=== PATIENT | female | born 1965 | race Caucasian/White ===

== ENCOUNTER 2017-10-10 11:36 | Inpatient (IN) | payer BC ==
[2017-10-10] MEDS ORDERED: NORMAL SALINE 1000 ML 1,000 ML IV ONE (12:13)
--- NOTE | 2017-10-10 12:15 | ER Document Report ---
ED Medical Screen (RME) - General Chief Complaint: Lower Abdominal Pain Stated Complaint: ABDOMINAL PAIN Time Seen by Provider: 10/10/17 12:12 Notes: pt sent from Dr. Montoya's office for llq pain. states there was tender mass there this am. Dr. Montoya worried about incarcerated hernia. no incarc hernia appreciated in [place]. TRAVEL OUTSIDE OF THE [place] IN LAST 30 DAYS: No - Related Data Allergies/Adverse Reactions: promethazine HCl [From Phenergan] Adverse Reaction (Verified 10/10/17 11:38) "climbing lopez" Past Medical History - Social History Chew tobacco use (# tins/day): No Frequency of alcohol use: None Drug Abuse: None - Past Medical History Cardiac Medical History: Reports: Hx Hypercholesterolemia, Hx Hypertension Renal/ Medical History: Denies: Hx Peritoneal Dialysis Past Surgical History: Reports: Hx Hysterectomy - Immunizations Hx Diphtheria, Pertussis, Tetanus Vaccination: No Physical Exam - Vital signs Vitals: Temp Pulse Resp BP Pulse Ox 99.3 F 91 15 145/87 H 95 10/10/17 11:41 10/10/17 11:41 10/10/17 11:41 10/10/17 11:41 10/10/17 11:41 Course - Vital Signs Vital signs: Temp Pulse Resp BP Pulse Ox 99.3 F 91 15 145/87 H 95 10/10/17 11:41 10/10/17 11:41 10/10/17 11:41 10/10/17 11:41 10/10/17 11:41
[2017-10-10 12:41] LABS: ABSOLUTE BASOPHILS # (AUTO) 0.1 10^3/uL (0.0-0.2); ABSOLUTE LYMPHOCYTES (AUTO) 1.6 10^3/uL (0.5-4.7); ABSOLUTE MONOCYTES (AUTO) 0.8 10^3/uL (0.1-1.4); ABSOLUTE NEUT (AUTO) 10.7 10^3/uL (1.7-8.2); BASOPHILS % (AUTO) 0.8 % (0-2); EOSINOPHILS % (AUTO) 0.3 % (0-6); HEMATOCRIT 46.6 % (36.0-47.0); HEMOGLOBIN 15.5 g/dL (12.0-15.5); LYMPHOCYTES % (AUTO) 12.1 % (13-45); MEAN CORPUSCULAR HGB CONC 33.2 g/dL (32.0-36.0); MEAN CORPUSCULAR VOLUME 93 fl (80-97); PLATELET COUNT 335 10^3/uL (150-450); SEGMENTED NEUTROPHILS % (AUTO) 80.8 % (42-78); TOTAL CELLS COUNTED % (AUTO) 100 %; WHITE BLOOD COUNT 13.2 10^3/uL (4.0-10.5)
[2017-10-10 12:46] LABS: APPEARANCE,URINE SLIGHTLY-CLOUDY; BILIRUBIN,URINE NEGATIVE (NEGATIVE); COLOR,URINE YELLOW; GLUCOSE, URINE NEGATIVE (NEGATIVE); KETONES,URINE NEGATIVE (NEGATIVE); LEUKOCYTE ESTERASE,URINE NEGATIVE (NEGATIVE); NITRITE,URINE NEGATIVE (NEGATIVE); PROTEIN,URINE NEGATIVE (NEGATIVE); URINE SPECIFIC GRAVITY 1.023; UROBILINOGEN,URINE NEGATIVE mg/dL (<2.0)
[2017-10-10] MEDS ORDERED: NEOSTIGMINE METHYLSULFATE 10 MG/10 ML VIAL ONE (12:47)
[2017-10-10] MEDS ORDERED: SUCCINYLCHOLINE CHLORIDE INJ 200 MG/10 ML VIAL ONE (12:47)
[2017-10-10] MEDS ORDERED: LIDOCAINE 2% INJ-PF (20 MG/ML) 2 ML AMPUL ONE (12:47)
[2017-10-10] MEDS ORDERED: ONDANSETRON HCL INJ/PF 4 MG/2 ML SDV ONE ×2 (12:47→20:19)
[2017-10-10] MEDS ORDERED: DEXAMETHASONE SOD PHOSPHATE INJ 4 MG/1 ML VIAL ONE (12:47)
[2017-10-10] MEDS ORDERED: ROCURONIUM BROMIDE INJ 50 MG/5 ML VIAL IV ONE (12:47)
[2017-10-10] MEDS ORDERED: GLYCOPYRROLATE INJ 0.4 MG/2 ML VIAL ONE (12:47)
[2017-10-10 12:56] LABS: ALANINE AMINOTRANSFERASE 42 U/L (9-52); ALKALINE PHOSPHATASE 101 U/L (38-126); ANION GAP 14 (5-19); ASPARTATE AMINO TRANSFERASE 26 U/L (14-36); BILIRUBIN,DIRECT 0.3 mg/dL (0.0-0.4); BILIRUBIN,TOTAL 1.1 mg/dL (0.2-1.3); BLOOD UREA NITROGEN 12 mg/dL (7-20); CALCIUM 10.8 mg/dL (8.4-10.2); CARBON DIOXIDE 26 mmol/L (22-30); CHLORIDE 100 mmol/L (98-107); GLUCOSE 116 mg/dL (75-110); POTASSIUM 4.3 mmol/L (3.6-5.0); SODIUM 140.1 mmol/L (137-145); TOTAL PROTEIN 7.8 g/dL (6.3-8.2)
--- NOTE | 2017-10-10 13:19 | ER Document Report ---
ED GI/ - General Chief Complaint: Lower Abdominal Pain Stated Complaint: ABDOMINAL PAIN Time Seen by Provider: 10/10/17 12:12 Notes: Patient having pain in the left lower quadrant of her abdomen out 24 hours ago. She was just doing some light physical activity when the pain began. It has gotten worse throughout the evening and night. Is been confined to the left lower quadrant. Patient says she feels like she can feel some swelling in that region. Went to her primary care physician's office this morning who said that she could feel a knot in the left lower quadrant and sent her here for further evaluation. Patient says she is nauseated but not vomiting. During the night, she had about 7 small loose stools, but no blood seen. She has never had any gastrointestinal disorder such as colitis, diverticulitis, etc. Patient has felt hot and cold, but has not noted a fever. Patient has had a hernia repair and a hysterectomy. TRAVEL OUTSIDE OF THE [place] IN LAST 30 DAYS: No - Related Data Allergies/Adverse Reactions: promethazine HCl [From Phenergan] Adverse Reaction (Verified 10/10/17 11:38) "climbing lopez" Past Medical History - Social History Smoking Status: Former Smoker Chew tobacco use (# tins/day): No Frequency of alcohol use: Occasional Drug Abuse: None Family History: Reviewed & Not Pertinent Patient has suicidal ideation: No Patient has homicidal ideation: No - Past Medical History Cardiac Medical History: Reports: Hx Hypercholesterolemia, Hx Hypertension Endocrine Medical History: Reports: Hx Diabetes Mellitus Type 2 - Total she does not have diabetes, but on metformin. Past Surgical History: Reports: Hx Hysterectomy - Immunizations Hx Diphtheria, Pertussis, Tetanus Vaccination: No Review of Systems - Review of Systems Notes: REVIEW OF SYSTEMS: CONSTITUTIONAL : Denies fever. EENT: Denies eye, ear, nose or mouth or throat pain or other symptoms. CARDIOVASCULAR: Denies chest pain. RESPIRATORY: Denies cough, chest congestion, or shortness of breath. GASTROINTESTINAL: See HPI. GENITOURINARY: Denies difficulty or painful urinating, urinary frequency, blood in urine. History of kidney stones, but this pain does not feel like a stone. MUSCULOSKELETAL: Denies back or neck pain. Denies joint pain or swelling. SKIN: Denies rash or skin lesions. NEUROLOGICAL: Denies LOC or altered mental status. Denies headache. Denies sensory loss or motor deficits. ALL OTHER SYSTEMS REVIEWED AND NEGATIVE. Physical Exam - Vital signs Vitals: Temp Pulse Resp BP Pulse Ox 99.3 F 91 15 145/87 H 95 10/10/17 11:41 10/10/17 11:41 10/10/17 11:41 10/10/17 11:41 10/10/17 11:41 Interpretation: Normal - Notes Notes: PHYSICAL EXAMINATION: GENERAL: Well-appearing, in no acute distress. HEAD: Atraumatic, normocephalic. EYES: Pupils equal round and reactive to light, extraocular movements intact. ENT: oropharynx clear without exudates. Moist mucous membranes. NECK: Normal range of motion, supple. LUNGS: Breath sounds clear and equal bilaterally. HEART: Regular rate and rhythm without murmurs. ABDOMEN: Tender in the left lower quadrant. I feel a slight protrusion about 3- 4 cm diameter in the left lower quadrant which is tender to touch. Remainder of the abdomen is completely normal to examine. BACK: No tenderness throughout entire back. EXTREMITIES: Normal range of motion without pain. NEUROLOGICAL: Normal speech, normal gait. Normal sensory, motor, and reflex exams. Awake, alert, and oriented x3. Cranial nerves normal. PSYCH: Normal mood, normal affect. SKIN: Warm, dry, no rashes. Course - Re-evaluation Re-evalutation: 10/10/17 14:54 Spoke with radiologist who says patient has an incarcerated sigmoid colon hernia. Spoke with the surgeon events solutions consultant, Dr. Hood, who will see the patient in the ED and plan for surgical intervention. - Vital Signs Vital signs: Temp Pulse Resp BP Pulse Ox 99.3 F 91 15 145/87 H 95 10/10/17 11:41 10/10/17 11:41 10/10/17 11:41 10/10/17 11:41 10/10/17 11:41 - Laboratory Result Diagrams: 10/10/17 12:28 10/10/17 12:28 Laboratory results interpreted by me: 10/10/17 10/10/17 12:28 12:28 WBC 13.2 H Seg Neutrophils % 80.8 H Lymphocytes % 12.1 L Absolute Neutrophils 10.7 H Glucose 116 H Calcium 10.8 H - Diagnostic Test Radiology reviewed: Image reviewed, Reports reviewed - CT of the abdomen and pelvis with IV contrast shows an incarcerated sigmoid colon hernia with some swelling and edematous changes. Discharge - Discharge Clinical Impression: Incarcerated hernia Condition: Stable Disposition: ADMITTED INPATIENT Admitting Provider: Surgicalist Unit Admitted: OR
--- NOTE | 2017-10-10 15:11 | RADIOLOGY REPORT (SQ) ---
EXAM DESCRIPTION: CT ABD/PELVIS WITH IV ONLY COMPLETED DATE/TIME: 10/10/2017 1:38 pm REASON FOR STUDY: llq pain COMPARISON: CT abdomen pelvis 05/18/2013 TECHNIQUE: CT scan of the abdomen and pelvis performed using helical scanning technique with dynamic intravenous contrast injection. No oral contrast. Images reviewed with lung, soft tissue, and bone windows. Reconstructed coronal and sagittal MPR imag es reviewed. Delayed images for evaluation of the urinary system also acquired. All images stored on PACS. All CT scanners at this facility use dose modulation, iterative reconstruction, and/or weight based d osing when appropriate to reduce radiation dose to as low as reasonably achievable (ALARA). [facility]: Dose Right [facility]: CareDose [facility]: Dose Right [facility]: Teradose 4D [facility]: [place] CONTRAST TYPE AND DOSE: contrast/concentration: Isovue 370.00 mg/ml; Total Contrast Delivered: 100.0 ml; Total Saline Delivered: 70.0 ml RENAL FUNCTION: Creatinine 0.58 RADIATION DOSE: CT Rad equipment meets quality standard of care and radiation dose reduction techniq ues were employed. CTDIvol: 20.5 - 21.0 mGy. DLP: 2354 mGy-cm.. LIMITATIONS: None. FINDINGS: Patient has a left lower quadrant hernia, along the lateral aspect of the left rectus musc le sheath. This hernia contains a thick walled loop of descending colon with stranding in the fat becerra rrounding the bowel loop within the hernia sac. This is worrisome for an incarcerated hernia, bowel wall ischemia in this loop is possible. These findings were discussed with Dr. Sy in the emerge ncy room, 1440 hours 10/10/2017. No proximal colon dilatation. No dilated small bowel loops worrisome for obstruction. No free intra peritoneal air or fluid. LOWER CHEST: No significant findings. No nodules or infiltrates. LIVER: Normal size. No masses. No dilated ducts. Diffuse fatty infiltration of the liver. SPLEEN: Normal size. No focal lesions. PANCREAS: No masses. No significant calcifications. No adjacent inflammation or peripancreatic fluid collections. Pancreatic duct not dilated. GALLBLADDER: No identified stones by CT criteria. No inflammatory changes to suggest cholecystitis. ADRENAL GLANDS: No significant masses or asymmetry. RIGHT KIDNEY AND URETER: No solid masses. No significant calcifications. No hydronephrosis or hyd roureter. LEFT KIDNEY AND URETER: No solid masses. No significant calcifications. No hydronephrosis or hydr oureter. AORTA AND VESSELS: No aneurysm. No dissection. Renal arteries, SMA, celiac without stenosis. RETROPERITONEUM: No retroperitoneal adenopathy, hemorrhage or masses. BOWEL AND PERITONEAL CAVITY: As above. APPENDIX: Normal. PELVIS: No mass. No free fluid. Normal bladder. Post hysterectomy ABDOMINAL WALL: No masses. No hernias. BONES: No significant or acute findings. OTHER: No other significant finding. IMPRESSION: Hernia left lower quadrant along the lateral edge of the rectus muscle sheath. This con tains a thick walled loop of descending colon, with surrounding inflammatory change worrisome for inc arcerated loop of bowel No proximal bowel obstruction is noted TECHNICAL DOCUMENTATION: JOB ID: [id number] Quality ID # [id number]: Final reports with documentation of one or more dose reduction techniques (e.g., Au tomated exposure control, adjustment of the mA and/or kV according to patient size, use of iterative reconstruction technique) 2010 [employer]- All Rights Reserved Reading location - IP/workstation name: [facility]
[2017-10-10] MEDS ORDERED: CEFOXITIN INJ 1 GM VIAL IV ONE (15:58)
--- NOTE | 2017-10-10 15:58 | PDOC H&P ---
History of Present Illness Admission Date/PCP: 10/10/17 15:03 History of Present Illness: LEISA JEAN is a 52 year old female with a 2 week hx of left sided abdominal pain, more intense today. She saw her PCP today and was sent to the ER. A CT scan A/P has been done demonstrating a left lower quadrant ventral hernia containing inflamed sigmoid. The patient reports flatus and diarrhea this AM, no bowel function since then. Past Medical History Cardiac Medical History: Reports: Hyperlipidema, Hypertension Endocrine Medical History: Reports: Diabetes Mellitus Type 2 - Total she does not have diabetes, but on metformin. Past Surgical History Past Surgical History: Reports: Hysterectomy Social History Smoking Status: Former Smoker Family History Family History: Reviewed & Not Pertinent Parental Family History Reviewed: No Children Family History Reviewed: No Sibling(s) Family History Reviewed.: No Medication/Allergy Home Medications: Amlodipine Besylate 10 mg PO DAILY 10/10/17 Atorvastatin Calcium 20 mg PO DAILY 10/10/17 Escitalopram Oxalate 10 mg PO DAILY 10/10/17 Lorazepam [Ativan 0.5 mg Tablet] 0.5 mg PO Q4 PRN 10/10/17 Losartan Potassium 100 mg PO DAILY 10/10/17 Metformin HCl 500 mg PO DAILY 10/10/17 Spironolactone 25 mg PO DAILY 10/10/17 Allergies/Adverse Reactions: promethazine HCl [From Phenergan] Adverse Reaction (Verified 10/10/17 11:38) "climbing lopez" Physical Exam Vital Signs: Temp Pulse Resp BP Pulse Ox 99.3 F 91 15 145/87 H 95 10/10/17 11:41 10/10/17 11:41 10/10/17 11:41 10/10/17 11:41 10/10/17 11:41 General appearance: PRESENT: mild distress Head exam: PRESENT: atraumatic Mouth exam: PRESENT: moist Neck exam: PRESENT: full ROM Respiratory exam: PRESENT: clear to auscultation maria elena Cardiovascular exam: PRESENT: RRR GI/Abdominal exam: PRESENT: soft, tenderness - LLQ with palpable tender subcutaneous mass, other - obese Extremities exam: PRESENT: full ROM Musculoskeletal exam: PRESENT: full ROM Neurological exam: PRESENT: alert, altered Psychiatric exam: PRESENT: anxious Results Impressions: Abdomen/Pelvis CT 10/10/17 12:13 IMPRESSION: Hernia left lower quadrant along the lateral edge of the rectus muscle sheath. This contains a thick walled loop of descending colon, with surrounding inflammatory change worrisome for incarcerated loop of bowel No proximal bowel obstruction is noted Assessment & Plan - Diagnosis (1) Spigelian hernia Is this a current diagnosis for this admission?: Yes - Plan Summary Plan Summary: A/ LLQ Abdominal pain CT scan significant for Spigelian hernia, LLQ, containing sigmoid colon Colon appears inflamed on CT scan HTN, Hypercholesterolemia, Type 2 diabetes Morbid obesisty Slight leukocytosis (13k) P/ NPO IV Hydration Consent for epxloratory laparotomy, repair ventral hernia with mesh, possible bowel resection, possible ostomy Procedure, risks, benefits discussed with the patient, her questions were answered and she decides to proceed
[2017-10-10] MEDS ORDERED: CEFOXITIN SODIUM 2 GM in DEXTROSE 5%-WATER 100 ML IV PRN (16:16)
[2017-10-10] MEDS ORDERED: BUPIVACAINE HCL 0.5%-EPI 1:200000 INJ/PF 30 ML VIAL ONE (16:22)
[2017-10-10] MEDS ORDERED: FENTANYL CITRATE INJ/PF 250 MCG/5 ML AMPULE ONE (16:27)
[2017-10-10] MEDS ORDERED: ACETAMINOPHEN 100 ML IV ONE (16:28)
[2017-10-10] MEDS ORDERED: PROPOFOL INJ 200 MG/20 ML VIAL IV ONE (16:28)
[2017-10-10] MEDS ORDERED: MIDAZOLAM 2 MG/2 ML INJ ONE (16:28)
[2017-10-10] MEDS ORDERED: FENTANYL CITRATE INJ/PF 100 MCG/2 ML AMPUL ONE (17:21)
[2017-10-10] MEDS ORDERED: DIPHENHYDRAMINE HCL 50 MG/ML VIAL IV PRN (18:42)
[2017-10-10] MEDS ORDERED: MEPERIDINE HCL/PF INJ 25 MG/1 ML DISP.SYRIN IV PRN (18:42)
[2017-10-10] MEDS ORDERED: FENTANYL CITRATE INJ/PF 100 MCG/2 ML AMPUL IV PRN ×3 (18:42)
[2017-10-10] MEDS ORDERED: ONDANSETRON HCL INJ/PF 4 MG/2 ML SDV IV PRN (18:42)
--- NOTE | 2017-10-10 20:17 | Operative Report ---
Nonrecallable Operative Report DATE OF SURGERY: 10/10/17 PREOPERATIVE DIAGNOSIS: incarcerated, strangulated Spigelian hernia, left lower quadrant POSTOPERATIVE DIAGNOSIS: Incarcerated left lower quadrant Spigelian hernia OPERATION: Diagnostic laparoscopic. Laparoscopic repair of Spigelian hernia with primary closure. Excision of exuberant fat from sigmoid colon mesentery SURGEON: RYNE KAY 1ST [employer]: SHANTE WATSON ANESTHESIA: GA - plus 11 mL 1% lido with epi TISSUE REMOVED OR ALTERED: none COMPLICATIONS: none ESTIMATED BLOOD LOSS: 50 mL INTRAOPERATIVE FINDINGS: 3 cm LLQ Spigelian hernia defect filled with loop of sigmoid and large amount of sigmoid mesenteric fat; hernia incarcerated type PROCEDURE: see dictation
[2017-10-10] MEDS: FENTANYL CITRATE INJ/PF 100 MCG/2 ML AMPUL ONE ×2 (20:23→20:40)
--- NOTE | 2017-10-10 22:24 | EKG REPORT ---
SEVERITY:- OTHERWISE NORMAL ECG - SINUS RHYTHM BORDERLINE LEFT AXIS DEVIATION : Confirmed by: Darrell Davidson 10-Oct-2017 22:24:14
[2017-10-10] MEDS: MORPHINE SULFATE 10 MG/ML INJ IV PRN (22:58)
[2017-10-11] MEDS: FAMOTIDINE INJ/PF 20 MG/2 ML SDV IV SCH ×3 (00:28→21:33)
[2017-10-11] MEDS: ONDANSETRON HCL INJ/PF 4 MG/2 ML SDV IV SCH ×4 (00:30→18:02)
[2017-10-11] MEDS: NORMAL SALINE 1000 ML 1,000 ML IV PRN (00:30)
[2017-10-11] MEDS: CEFOXITIN SODIUM 2 GM in DEXTROSE 5%-WATER 100 ML IV SCH ×3 (01:03→18:02)
[2017-10-11] MEDS: MORPHINE SULFATE 10 MG/ML INJ IV PRN ×4 (01:04→21:33)
[2017-10-11 06:03] LABS: HEMATOCRIT 38.4 % (36.0-47.0); MEAN CORPUSCULAR HEMOGLOBIN 32.2 pg (27.0-33.4); MEAN CORPUSCULAR HGB CONC 34.2 g/dL (32.0-36.0); MEAN CORPUSCULAR VOLUME 94 fl (80-97); PLATELET COUNT 252 10^3/uL (150-450); RED BLOOD COUNT 4.09 10^6/uL (3.72-5.28); RED CELL DISTRIBUTION WIDTH 12.8 % (11.5-14.0); WHITE BLOOD COUNT 10.7 10^3/uL (4.0-10.5)
[2017-10-11 06:06] LABS: HEMOGLOBIN 13.2 g/dL (12.0-15.5)
[2017-10-11 06:17] LABS: ANION GAP 10 (5-19); BLOOD UREA NITROGEN 7 mg/dL (7-20); CALCIUM 9.1 mg/dL (8.4-10.2); CARBON DIOXIDE 28 mmol/L (22-30); CHLORIDE 104 mmol/L (98-107); GLUCOSE 125 mg/dL (75-110); POTASSIUM 4.4 mmol/L (3.6-5.0); SODIUM 141.9 mmol/L (137-145)
[2017-10-11] MEDS: OXYCODONE-ACETAMINOPHEN 5-325 MG TABLET PO PRN ×2 (11:49→18:02)
--- NOTE | 2017-10-11 15:45 | OPERATIVE REPORT E ---
Operative Report NAME: LEISA JEAN : 1965 AGE: 52Y DATE OF SURGERY: 10/10/2017 ROOM: 401 PREOPERATIVE DIAGNOSIS: Incarcerated left Spigelian hernia containing sigmoid colon. POSTOPERATIVE DIAGNOSIS: Incarcerated left Spigelian hernia containing sigmoid colon. OPERATION: 1. Diagnostic laparoscopy. 2. Laparoscopic repair of Spigelian hernia with primary closure. 3. Excision of excess mesenteric sigmoid fat. SURGEON: Filomena CARRERA M.D. COMPLICATIONS: None. ANESTHESIA: General plus mL of 1% Lidocaine with epinephrine. FLUIDS: 1300 URINE OUTPUT: 250 ESTIMATED BLOOD LOSS: 50 mL DRAINS: One round 10 mm Chato-Medrano drain. INDICATIONS AND FINDINGS: This is a morbidly obese 52-year-old female with a history of abdominal pain for 2 weeks. The pain has become more intense this morning in the left lower quadrant. She was sent to her medical doctor who sent her to the Emergency Room and found to have a left lower quadrant Spigelian hernia containing sigmoid colon which appears to be incarcerated with a possible strangulation. A decision was made to take the patient to surgery to undergo a diagnostic laparoscopy and laparoscopic versus open repair of the mesh with possible bowel resection and ostomy. Procedure, risks, benefits, complications explained to the patient. She understood all the above and decided to proceed. DESCRIPTION OF PROCEDURE: The procedure was done in the operating room. The patient was laid in supine position. General anesthesia induced by endotracheal intubation. Buckley catheter was placed. The abdomen was prepped and draped in usual fashion. An incision was made in the left upper quadrant and a 5 mm port with scope was inserted through the abdominal wall and CO2 pneumoperitoneum was established. Under direct visualization, 2 mm port, two 5 mm ports were placed in the right lateral quadrant of the abdomen about 5 fingerbreadths lateral to the midline. The 2 ports were spaced about 15 cm. The patient was then placed in a Trendelenburg position with the right side elevated and the left lower quadrant was explored and a loop of sigmoid colon was found to be encapsulated inside the Spigelian hernia defect located in the left lower quadrant. With graspers and ligature, a painstaking reduction of the sigmoid colon as well as the hernia contents was done which took about 2 hours of the entire procedure. During this portion of the procedure, the sigmoid colon was initially reduced followed by the reduction of a large amount of sigmoid mesenteric fat which was contained inside the hernia defect. This dissection was very prolonged because of the caution utilized to avoid any injury to the colon. Once the contents were completely excised, the sigmoid colon was completely examined and found to be free from any injury and the posteromedial wall of the colon was then carefully examined. A large amount of exuberant fatty tissue which was contained inside the Spigelian hernia defect and was traumatized by the hernia reduction was amputated with Bovie. All these segments of fat tissue were then extracted from the peritoneal cavity using an Endobag and removed. The CO2 pneumoperitoneum again was established. The ports were reinserted. The sigmoid colon was again examined on anterior and posterior wall and no evidence of injury was identified as well as no evidence of spillage of bowel content. At this point, the peritoneal cavity was irrigated with normal saline until clear and a qhxgph-hr-cuztu 0 PDS suture was used to close the Spigelian defect. This was done by making a single stab wound of the skin in the middle of the Spigelian hernia defect. Using a fascia closure device, the 0 PDS suture was passed in a bcsvhc-ch-muhbm fashion and repaired through the same opening so to place a bsyvjo-jh-kixwu suture to close the fascia defect. After this was done, the suture released and the defect was then closed with the suture without any difficulty and without too much tension. The area was then examined with a laparoscope and found to be appropriately repaired. Under direct visualization, the 10 mm flat Chato-Medrano drain was inserted through the left upper quadrant port site and directed toward the left lower quadrant where the hernia repair was made and where the mesentery of the sigmoid colon was divided. The position of the drain was considered to be optimal. At this point, the CO2 then was released. The instruments were removed. The ports were removed as well. The drain was then secured to the skin with a 3-0 nylon suture and connected to bulb suction. A 5 mm port was replaced with a 20 mm port during the procedure as a laparoscopic Endo ARMEN stapler was used to trim some of the exuberant fatty tissue off the sigmoid colon. The 12 port site was closed with a simple 0 PDS suture placed with a fascia closure device. All skin incisions were then closed with subcuticular 4-0 Monocryl running suture. Dermabond was applied to all the wounds. The patient tolerated the procedure well, extubated, transferred to the recovery room in satisfactory condition. DICTATING PHYSICIAN: RYNE KAY M.D. [id number] PHY#: [id number] ID: [id number] JOB#: [id number] ACCT: [id number] cc:RYNE KAY M.D. >
--- NOTE | 2017-10-11 16:15 | PDOC PROGRESS REPORT ---
Subjective Progress Note for:: 10/11/17 Subjective:: less abd pains Reason For Visit: INCARCERATED HERNIA Physical Exam Vital Signs: Temp Pulse Resp BP Pulse Ox 98.5 F 75 16 145/93 H 93 10/11/17 11:32 10/11/17 11:32 10/11/17 11:32 10/11/17 11:32 10/11/17 11:32 Intake & Output 10/10/17 10/11/17 10/12/17 06:59 06:59 06:59 Intake Total 2200 446 Output Total 1525 300 Balance 675 146 Weight 118.3 kg Exam: ROGER drain removed. Start clears OOB Results Laboratory Results: 10/11/17 04:54 10/11/17 04:54 10/11/17 10/11/17 04:54 04:54 WBC 10.7 H RBC 4.09 Hgb 13.2 D Hct 38.4 MCV 94 MCH 32.2 MCHC 34.2 RDW 12.8 Plt Count 252 Sodium 141.9 Potassium 4.4 Chloride 104 Carbon Dioxide 28 Anion Gap 10 BUN 7 Creatinine 0.54 Est GFR ( Amer) > 60 Est GFR (Non-Af Amer) > 60 Glucose 125 H Calcium 9.1 Impressions: Abdomen/Pelvis CT 10/10/17 12:13 IMPRESSION: Hernia left lower quadrant along the lateral edge of the rectus muscle sheath. This contains a thick walled loop of descending colon, with surrounding inflammatory change worrisome for incarcerated loop of bowel No proximal bowel obstruction is noted Assessment & Plan - Diagnosis (2) Spigelian hernia Is this a current diagnosis for this admission?: Yes - Time Time Spent with patient: 15-24 minutes - Inpatient Certification Medical Necessity: Need For IV Fluids, Need for Pain Control - Plan Summary Plan Summary: Start clears OOB D/C drain
[2017-10-12] MEDS: ONDANSETRON HCL INJ/PF 4 MG/2 ML SDV IV SCH ×4 (00:22→17:14)
[2017-10-12] MEDS: OXYCODONE-ACETAMINOPHEN 5-325 MG TABLET PO PRN (00:23)
[2017-10-12] MEDS: CEFOXITIN SODIUM 2 GM in DEXTROSE 5%-WATER 100 ML IV SCH ×3 (01:37→17:15)
[2017-10-12] MEDS: FAMOTIDINE INJ/PF 20 MG/2 ML SDV IV SCH (09:25)
[2017-10-12] MEDS ORDERED: DOCUSATE SODIUM 100 MG CAPSULE PO SCH (10:00)
[2017-10-12] MEDS: NORMAL SALINE 1000 ML 1,000 ML IV PRN (10:29)
[2017-10-12] MEDS ORDERED: GLYCERIN (ADULT) SUPP.RECT PR ONE (13:30)
[2017-10-12 15:57] VITALS: BP 151/89
--- NOTE | 2017-10-12 16:26 | PDOC PROGRESS REPORT ---
Subjective Progress Note for:: 10/12/17 Subjective:: Passed a lot of flatus Reason For Visit: INCARCERATED HERNIA Physical Exam Vital Signs: Temp Pulse Resp BP Pulse Ox 98.3 F 73 16 151/89 H 94 10/12/17 15:22 10/12/17 15:22 10/12/17 15:22 10/12/17 15:22 10/12/17 15:22 Intake & Output 10/11/17 10/12/17 10/13/17 06:59 06:59 06:59 Intake Total 2200 2958 Output Total 1525 300 Balance 675 2658 Weight 118.3 kg 120.9 kg Exam: abd soft and minimal tenderness RLQ area where she has 2 ports placed. Results Laboratory Results: 10/11/17 04:54 10/11/17 04:54 Impressions: Abdomen/Pelvis CT 10/10/17 12:13 IMPRESSION: Hernia left lower quadrant along the lateral edge of the rectus muscle sheath. This contains a thick walled loop of descending colon, with surrounding inflammatory change worrisome for incarcerated loop of bowel No proximal bowel obstruction is noted Assessment & Plan - Diagnosis (2) Spigelian hernia Is this a current diagnosis for this admission?: Yes - Time Time Spent with patient: 15-24 minutes - Plan Summary Plan Summary: Will increase diet to soft and if tolerates, discharge.
--- NOTE | 2017-10-13 05:45 | DISCHARGE SUMMARY E ---
Discharge Summary NAME: LEISA JEAN : 1965 AGE: 52Y ADMITTED: 10/10/2017 DISCHARGED: 10/12/2017 FINAL DIAGNOSIS: Incarcerated spigelian hernia. PROCEDURE: On 10/10/2017, laparoscopic reduction of incarcerated spigelian hernia/colon. Primary repair of the hernia. HOSPITAL COURSE: Patient admitted on 10/10/[address] scan of the abdomen which showed incarcerated descending colon along the left lateral rectus sheath, indicating incarcerated spigelian hernia. Patient taken to the OR on the same day for laparoscopic reduction of the hernia and primary repair of the hernia and primary repair of the hernia defect. Postoperatively, the patient did very well. The NG tube was removed on 10/11/2017 and started on clear liquids. On the day of discharge, patient able to tolerate soft diet and had good passage of flatus with abdomen remaining much less distended with minimal tenderness in the right lower abdomen trocar sites. The patient started on IV antibiotics with the white count elevated. She was discharged on oral Keflex 500 mg p.o. t.i.d. for 5 days as well as Percocet and Zofran. Patient advised not to do any lifting more than 10 to 15 pounds for the next 2 weeks. The patient is to be followed up in the surgical clinic in 2 weeks. DICTATING PHYSICIAN: ZEINA BAUTISTA M.D. [id number] PHY#: [id number] ID: [id number] JOB#: [id number] ACCT: [id number] cc:Filomena CARRERA M.D. >
== END 2017-10-12 19:11 | disposition home or self-care (01) | DRG 354 ==
LOC: ER 11:36 → EH 15:03 → 4N 21:43
PROVIDERS: ADMIT Surgery; ATTEND Surgery
PROC: 0DBV4ZZ Excision of Mesentery, Percutaneous Endoscopic Approach (ICD-10-PCS; 2017-10-10)
PROC: 0WQF4ZZ Repair Abdominal Wall, Percutaneous Endoscopic Approach (ICD-10-PCS; principal; 2017-10-10 16:45)
DX: K43.9 Ventral hernia without obstruction or gangrene (principal); Z68.43 Body mass index [BMI] 50.0-59.9, adult; E78.5 Hyperlipidemia, unspecified; E78.00 Pure hypercholesterolemia, unspecified; I10 Essential (primary) hypertension; E11.9 Type 2 diabetes mellitus without complications; E66.01 Morbid (severe) obesity due to excess calories; Z87.891 Personal history of nicotine dependence; Z79.84 Long term (current) use of oral hypoglycemic drugs; Z79.899 Other long term (current) drug therapy
CPT/HCPCS: 36415; 74177; 750; 80048; 80053; 81001; 85025; 85027; 93005; 93010; 96360; 99285; J0131; J0330; J0694; J1100; J2250; J2270; J2405; J2704; J3010; J3490; J7030; S0028

== ENCOUNTER → 2018-09-12 | Outpatient (CLI) | payer BC ==
[2018-09-12 11:42] LABS: ABSOLUTE BASOPHILS # (AUTO) 0.1 10^3/uL (0.0-0.2); ABSOLUTE EOSINOPHILS # (AUTO) 0.1 10^3/uL (0.0-0.6); ABSOLUTE LYMPHOCYTES (AUTO) 0.9 10^3/uL (0.5-4.7); ABSOLUTE MONOCYTES (AUTO) 0.8 10^3/uL (0.1-1.4); ABSOLUTE NEUT (AUTO) 4.6 10^3/uL (1.7-8.2); EOSINOPHILS % (AUTO) 1.1 % (0-6); HEMATOCRIT 42.9 % (36.0-47.0); HEMOGLOBIN 15.1 g/dL (12.0-15.5); LYMPHOCYTES % (AUTO) 14.5 % (13-45); MEAN CORPUSCULAR HEMOGLOBIN 32.4 pg (27.0-33.4); MEAN CORPUSCULAR HGB CONC 35.1 g/dL (32.0-36.0); MEAN CORPUSCULAR VOLUME 92 fl (80-97); MONOCYTES % (AUTO) 12.7 % (3-13); PLATELET COUNT 256 10^3/uL (150-450); RED BLOOD COUNT 4.65 10^6/uL (3.72-5.28); SEGMENTED NEUTROPHILS % (AUTO) 70.7 % (42-78); TOTAL CELLS COUNTED % (AUTO) 100 %; WHITE BLOOD COUNT 6.6 10^3/uL (4.0-10.5)
--- NOTE | 2018-09-12 12:00 | RADIOLOGY REPORT (SQ) ---
EXAM DESCRIPTION: CHEST PA/LATERAL COMPLETED DATE/TIME: 09/12/2018 11:45 am REASON FOR STUDY: UNSPECIFIED BACTERIAL PNEUMONIA COMPARISON: None. EXAM PARAMETERS: NUMBER OF VIEWS: two views TECHNIQUE: Digital Frontal and Lateral radiographic views of the chest acquired. RADIATION DOSE: NA LIMITATIONS: none FINDINGS: LUNGS AND PLEURA: No opacities, masses or pneumothorax. No pleural effusion. MEDIASTINUM AND HILAR STRUCTURES: No masses or contour abnormalities. HEART AND VASCULAR STRUCTURES: Heart normal size. No evidence for failure. BONES: No acute findings. HARDWARE: None in the chest. OTHER: No other significant finding. IMPRESSION: NO SIGNIFICANT RADIOGRAPHIC FINDING IN THE CHEST. TECHNICAL DOCUMENTATION: JOB ID: [id number] [employer]- All Rights Reserved Reading location - IP/workstation name: [email or web address]
[2018-09-12 12:06] LABS: ALANINE AMINOTRANSFERASE 42 U/L (9-52); ALBUMIN 4.6 g/dL (3.5-5.0); ALKALINE PHOSPHATASE 109 U/L (38-126); ANION GAP 16 (5-19); CALCIUM 10.6 mg/dL (8.4-10.2); CARBON DIOXIDE 25 mmol/L (22-30); CHLORIDE 96 mmol/L (98-107); CHOLESTEROL 176.36 mg/dL (0-200); POTASSIUM 3.6 mmol/L (3.6-5.0); SODIUM 136.5 mmol/L (137-145); TRIGLYCERIDES 205 mg/dL (<150)
[2018-09-12 12:12] LABS: ASPARTATE AMINO TRANSFERASE 38 U/L (14-36); BILIRUBIN,DIRECT 0.4 mg/dL (0.0-0.4); BILIRUBIN,TOTAL 0.9 mg/dL (0.2-1.3); BLOOD UREA NITROGEN 6 mg/dL (7-20); GLUCOSE 130 mg/dL (75-110); TOTAL PROTEIN 7.9 g/dL (6.3-8.2)
[2018-09-12 12:16] LABS: DIRECT LDL 102 mg/dL (<100)
== END ==
LOC: OD 11:13
PROVIDERS: ATTEND Family Medicine
DX: E83.52 Hypercalcemia (principal); J15.9 Unspecified bacterial pneumonia; R73.9 Hyperglycemia, unspecified; E78.5 Hyperlipidemia, unspecified
CPT/HCPCS: 36415; 71046; 80053; 80061; 82306; 83036; 84443; 85025

== ENCOUNTER 2018-09-22 08:32 | Emergency (ER) | payer BC ==
--- NOTE | 2018-09-22 09:37 | RADIOLOGY REPORT (SQ) ---
EXAM DESCRIPTION: CHEST 2 VIEWS COMPLETED DATE/TIME: 09/22/2018 9:28 am REASON FOR STUDY: right rib pain COMPARISON: Two-view chest 09/12/2018 EXAM PARAMETERS: NUMBER OF VIEWS: two views TECHNIQUE: Digital Frontal and Lateral radiographic views of the chest acquired. RADIATION DOSE: NA LIMITATIONS: none FINDINGS: LUNGS AND PLEURA: No opacities, masses or pneumothorax. No pleural effusion. MEDIASTINUM AND HILAR STRUCTURES: No masses or contour abnormalities. HEART AND VASCULAR STRUCTURES: Heart normal size. No evidence for failure. BONES: No acute findings. HARDWARE: None in the chest. OTHER: No other significant finding. IMPRESSION: NO ACUTE RADIOGRAPHIC FINDING IN THE CHEST. TECHNICAL DOCUMENTATION: JOB ID: [id number] [email or web address]- All Rights Reserved Reading location - IP/workstation name: [email or web address]
[2018-09-22 10:33] VITALS: BP 130/84
--- NOTE | 2018-09-22 10:33 | ER Document Report ---
ED Respiratory Problem - General Chief Complaint: Rib Pain Stated Complaint: RIB PAIN Time Seen by Provider: 09/22/18 09:01 Primary Care Provider: NANCI MARTINEZ MD [Primary Care Provider] - Follow up as needed Mode of Arrival: Ambulatory Information source: Patient Notes: 53-year-old female presents to ED for complaint of rib pain. She states she was being treated by PCP for bronchitis a week and a half with Levaquin and steroids. She states she still having a cough and felt like a snap in her ribs last night. She states she was coughing a lot and the rib pain continues. She denies taking any other medications for the pain. Patient is alert oriented respirations regular and unlabored speaking in full sentences walks with a even steady gait. TRAVEL OUTSIDE OF THE [place] IN LAST 30 DAYS: No - HPI Patient complains to provider of: Cough Onset: Other - 2 weeks Duration: Continuous, Intermittent episodes Initiating Event: URI Quality of pain: Sharp Severity: Moderate Pain Level: 4 Cough: Nonproductive Sputum amount: None Associated symptoms: Chest pain/discomfort - Right rib pain, Congestion, Cough, PND, Runny nose, Sinus pain/pressure Similar symptoms previously: Yes Recently seen / treated by doctor: Yes - Related Data Allergies/Adverse Reactions: promethazine HCl [From Phenergan] Adverse Reaction (Verified 10/10/17 11:38) "climbing lopez" Past Medical History - General Information source: Patient - Social History Smoking Status: Former Smoker Frequency of alcohol use: Occasional Drug Abuse: None Lives with: Family Family History: Reviewed & Not Pertinent Patient has suicidal ideation: No Patient has homicidal ideation: No - Past Medical History Cardiac Medical History: Reports: Hx Hypercholesterolemia, Hx Hypertension Pulmonary Medical History: Reports: Hx Bronchitis EENT Medical History: Reports: None Neurological Medical History: Reports: None Endocrine Medical History: Reports: Hx Diabetes Mellitus Type 2 - Total she does not have diabetes, but on metformin. Renal/ Medical History: Reports: None Malignancy Medical History: Reports: None GI Medical History: Reports: None Musculoskeletal Medical History: Reports None Skin Medical History: Reports None Psychiatric Medical History: Reports: None Traumatic Medical History: Reports: None Infectious Medical History: Reports: None Past Surgical History: Reports: Hx Hysterectomy - Immunizations Hx Diphtheria, Pertussis, Tetanus Vaccination: No Review of Systems - Review of Systems Constitutional: No symptoms reported EENT: Nose congestion, Nose discharge, Sinus pressure, Sinus discharge Cardiovascular: No symptoms reported Respiratory: Cough, Other Gastrointestinal: No symptoms reported Genitourinary: No symptoms reported Female Genitourinary: No symptoms reported Musculoskeletal: No symptoms reported Skin: No symptoms reported Hematologic/Lymphatic: No symptoms reported Neurological/Psychological: No symptoms reported Physical Exam - Vital signs Vitals: Temp Pulse Resp BP Pulse Ox 98.2 F 92 16 156/104 H 93 09/22/18 08:38 09/22/18 08:38 09/22/18 08:38 09/22/18 08:38 09/22/18 08:38 Interpretation: Normal - General General appearance: Appears well, Alert - HEENT Head: Normocephalic, Atraumatic Eyes: Normal Pupils: PERRL Ears: Normal External canal: Normal Tympanic membrane: Normal Sinus: Normal Nasal: Purulent discharge, Swelling Mouth/Lips: Normal Mucous membranes: Normal Pharynx: Post nasal drainage Neck: Normal - Respiratory Respiratory status: No respiratory distress. No: Respiratory distress, Depressed respirations, Retractions, Tachypnea Chest status: Tender, Pain on movement, Pain with cough, Pain with deep breathing Breath sounds: Normal Chest palpation: Normal - Cardiovascular Rhythm: Regular Heart sounds: Normal auscultation Murmur: No - Abdominal Inspection: Normal Distension: No distension Bowel sounds: Normal Tenderness: Nontender Organomegaly: No organomegaly - Back Back: Normal, Nontender - Extremities General upper extremity: Normal inspection, Nontender, Normal color, Normal ROM, Normal temperature General lower extremity: Normal inspection, Nontender, Normal color, Normal ROM, Normal temperature, Normal weight bearing. No: Nahun's sign - Neurological Neuro grossly intact: Yes Cognition: Normal Orientation: AAOx4 [place] Coma Scale Eye Opening: Spontaneous [place] Coma Scale Verbal: Oriented [place] Coma Scale Motor: Obeys Commands [place] Coma Scale Total: 15 Speech: Normal Motor strength normal: LUE, RUE, LLE, RLE Sensory: Normal - Psychological Associated symptoms: Normal affect, Normal mood - Skin Skin Temperature: Warm Skin Moisture: Dry Skin Color: Normal Course - Vital Signs Vital signs: Temp Pulse Resp BP Pulse Ox 98.3 F 79 18 130/84 H 93 09/22/18 10:22 09/22/18 10:22 09/22/18 10:22 09/22/18 10:22 09/22/18 10:22 - Diagnostic Test Radiology reviewed: Image reviewed, Reports reviewed Discharge - Discharge Clinical Impression: URI (upper respiratory infection) Qualifiers: URI type: unspecified viral URI Qualified Code(s): J06.9 - Acute upper respiratory infection, unspecified Contusion of rib on right side Qualifiers: Encounter type: initial encounter Qualified Code(s): S20.211A - Contusion of right front wall of thorax, initial encounter Condition: Stable Disposition: HOME, SELF-CARE Additional Instructions: Rib Contusion You have been diagnosed as having bruised ribs. It will usually take a few weeks for these injured ribs to heal. You should cough or take a deep breath at least every hour or two to prevent lung complications. You should not engage in any strenuous physical activity until released by your physician. The usual rule is "if it hurts, don't do it." Return if you develop any of the following: (1) Fever or chills. (2) Persistent cough, coughing up blood, or shortness of breath. (3) Increasing pain. (4) Weakness, lightheadedness, or fainting. UPPER RESPIRATORY ILLNESS: You have a viral infection of the respiratory passages -- a "cold." This common infection causes nasal congestion, drainage, and often sore throat and cough. It is highly contagious. The disease usually lasts about 10 to 14 days. There is no "cure" for the viral infection -- it must run its course. If there is a complication, such as bacterial infection in the nose, sinuses, middle ear, or bronchial tubes, antibiotics may be required. The antibiotics won't affect the virus. Drink plenty of fluids. A humidifier may help. An expectorant medication or decongestant may make you more comfortable. Use acetaminophen or ibuprofen for fever or aches. See the doctor if fever persists over two days, if there is any significant worsening of your symptoms, or if you simply fail to improve as expected. USE OF ACETAMINOPHEN (Tylenol): Acetaminophen may be taken for pain relief or fever control. It's much safer than aspirin, offering a wider range of "safe" dosages. It is safe during . Some brand names are Tylenol, Panadol, Datril, Anacin 3, Tempra, and Liquiprin. Acetaminophen can be repeated every four hours. The following are maximum recommended dosages: >89 pounds or adults 650 mg to 900 mg Acetaminophen can be repeated every four hours. Maximum dose not to exceed 4000 mg a day. Continue with your antibiotics and steroids as prescribed. Your lungs are clear your chest x-ray is clear there is no pneumonia there is no fractured ribs and there is no pneumothorax. Warm packs cold packs to the area whichever is more comfortable for you and follow-up with your primary care doctor. You may benefit from going to the gym and having a gym ortho assistant teach you some exercises to help strengthen that area to reduce injuries in the future. FOLLOW-UP CARE: If you have been referred to a physician for follow-up care, call the physicians office for an appointment as you were instructed or within the next two days. If you experience worsening or a significant change in your symptoms, notify the physician immediately or return to the Emergency Department at any time for re-evaluation. Forms: Elevated Blood Pressure, Return to Work Referrals: NANCI MARTINEZ MD [Primary Care Provider] - Follow up as needed
[2018-09-22] MEDS ORDERED: HYDROCODONE/ACETAMINOPHEN 5-325 MG TABLET PO ONE (10:37)
== END 2018-09-22 10:43 | disposition home or self-care (01) ==
LOC: ER 08:32
DX: S20.211A Contusion of right front wall of thorax, initial encounter (principal); R07.81 Pleurodynia; X58.XXXA Exposure to other specified factors, initial encounter; J06.9 Acute upper respiratory infection, unspecified; B97.89 Other viral agents as the cause of diseases classified elsewhere; R05 Cough; R09.82 Postnasal drip; I10 Essential (primary) hypertension; R09.81 Nasal congestion; J34.89 Other specified disorders of nose and nasal sinuses; Z87.891 Personal history of nicotine dependence
CPT/HCPCS: 71046; 99283

== ENCOUNTER 2019-03-14 10:01 | Emergency (ER) | payer BC ==
[2019-03-14] MEDS ORDERED: ONDANSETRON HCL INJ/PF 4 MG/2 ML SDV IV ONE (10:47)
--- NOTE | 2019-03-14 11:02 | ER Document Report ---
ED General - General Chief Complaint: Abdominal Pain Stated Complaint: LOWER ABDOMINAL PAIN Time Seen by Provider: 03/14/19 10:46 Primary Care Provider: MARCO A LUTZ MD [ACTIVE STAFF] - Follow up as needed NANCI MARTINEZ MD [Primary Care Provider] - 03/17/19 TRAVEL OUTSIDE OF THE [place] IN LAST 30 DAYS: No - HPI Notes: Patient is a 53-year-old female with a history of hypertension, left lower hernia repair 1.5years ago, total hyerstectomy, bilateral ovariectomy, IBS who presents complaining of left lower quadrant abdominal pain x4-6 days. The pain does not radiate. Patient states that the pain will be intermittent on occasion. She has had diarrhea for the last week and a half there is been watery without melena or hematochezia. She is urinating normally. No vaginal discharge, odor, bleeding. She has not noticed any bulging to her abdomen. She has had nausea without vomiting. Denies any headache, fever, neck pain, URI, sore throat, chest pain, palpitations, syncope, cough, shortness of breath, wheeze, dyspnea, vomiting/urinary retention, dysuria, hematuria, back pain, loss of control of bowel or bladder, numbness/tingling, saddle anesthesia, muscle paralysis/weakness, or rash. - Related Data Allergies/Adverse Reactions: promethazine HCl [From Phenergan] Adverse Reaction (Verified 03/14/19 10:04) "climbing lopez" Past Medical History - Social History Smoking Status: Never Smoker Family History: Reviewed & Not Pertinent - Past Medical History Cardiac Medical History: Reports: Hx Hypercholesterolemia, Hx Hypertension Pulmonary Medical History: Reports: Hx Bronchitis Endocrine Medical History: Reports: Hx Diabetes Mellitus Type 2 - Total she does not have diabetes, but on metformin. Renal/ Medical History: Denies: Hx Peritoneal Dialysis Past Surgical History: Reports: Hx Hysterectomy - Immunizations Hx Diphtheria, Pertussis, Tetanus Vaccination: No Review of Systems - Review of Systems -: Yes All other systems reviewed and negative Physical Exam - Vital signs Vitals: Temp Pulse Resp BP Pulse Ox 98.3 F 88 20 152/98 H 93 03/14/19 10:04 03/14/19 10:04 03/14/19 10:04 03/14/19 10:04 03/14/19 10:04 - Notes Notes: PHYSICAL EXAMINATION: GENERAL: Well-appearing, well-nourished and in no acute distress. HEAD: Atraumatic, normocephalic. EYES: Pupils equal round and reactive to light, extraocular movements intact, sclera anicteric, conjunctiva are normal. ENT: Nares patent and without discharge. oropharynx clear without exudates. No tonsilar hypertrophy or erythema. Moist mucous membranes. NECK: Normal range of motion, supple without lymphadenopathy LUNGS: Breath sounds clear to auscultation bilaterally and equal. No wheezes rales or rhonchi. HEART: Regular rate and rhythm without murmurs, rubs, gallops. ABDOMEN: Soft, nondistended abdomen. No guarding, no rebound. Normal bowel sounds present. No CVA tenderness bilaterally. No obvious hernia. + mild tenderness LLQ. Musculoskeletal: FROM to passive/active. Strength 5+/5. Extremities: No cyanosis, clubbing, or edema b/l. Peripheral pulses 2+. Capil corey refill less than 3 seconds. NEUROLOGICAL: Normal speech, normal gait. PSYCH: Normal mood, normal affect. SKIN: Warm, Dry, normal turgor, no rashes or lesions noted. Course - Re-evaluation Re-evalutation: 03/14/19 14:18 Patient is an afebrile, well-hydrated, 53-year-old female who presents with left lower abdominal pain, unspecified. Vitals are acceptable without significant tachycardia, tachypnea, or hypoxia. PE is otherwise unremarkable. Patient is nontoxic-appearing and is tolerating p.o. without difficulty. Patient states that she is feeling much better and currently does not have any discomfort. Patient did receive fluids and Zofran. Labs and imaging unremarkable. No further work-up warranted. Low suspicion/risk for acute appendicitis, bowel obstruction, acute cholecystitis, acute cholangitis, perforated diverticulitis, incarcerated hernia, pancreatitis, perforated ulcer, peritonitis, sepsis, pelvic inflammatory disease, ectopic , tubo-ovarian abscess, ovarian torsion, or other systemic emergent condition at this time. Patient is aware that her condition can change from initial presentation and she needs to monitor symptoms closely and seek medical attention if any acute changes. Conservative measures otherwise for symptoms. Recheck with your PCM in 2-3 days. Consider consult with a etl tester. Return to the ED with any worsening/concerning symptoms otherwise as reviewed in discharge. Patient is in agreement. - Vital Signs Vital signs: Temp Pulse Resp BP Pulse Ox 98.3 F 88 20 152/98 H 93 03/14/19 10:04 03/14/19 10:04 03/14/19 10:04 03/14/19 10:04 03/14/19 10:04 - Laboratory Result Diagrams: 03/14/19 11:20 03/14/19 11:20 Laboratory results interpreted by me: 03/14/19 11:20 Sodium 136.0 L Glucose 131 H Calcium 10.3 H AST 41 H Discharge - Discharge Clinical Impression: Left lower quadrant abdominal pain Condition: Stable Disposition: HOME, SELF-CARE Instructions: Abdominal Pain ([facility]), Antinausea Medication ([facility]) Additional Instructions: Maintain adequate fluid and food intake [place] diet ([employer] Bananas, rice, apples, toast, etc Zofran as needed tylenol if needed Monitor for any worsening symptoms Make sure you are staying hydrated enough to urinate and have normal BM's Recheck with your PCM in 2-3 days Consider consult with Gastroenterology for ongoing/worsening symptoms Return to the ED with any worsening symptoms and/or development of fever, headache, chest pain, palpitations, syncope, shortness of breath, trouble breathing, abdominal pain, n/v/d, blood in stool/urine, weakness, or other worsening symptoms that are concerning to you. Prescriptions: Ondansetron [Zofran Odt 4 mg Tablet] 1 - 2 tab PO Q4H PRN #15 tab.rapdis PRN Reason: For Nausea/Vomiting Forms: Elevated Blood Pressure Referrals: NANCI MARTINEZ MD [Primary Care Provider] - 03/17/19 MARCO A LUTZ MD [ACTIVE STAFF] - Follow up as needed
[2019-03-14 11:40] LABS: ABSOLUTE BASOPHILS # (AUTO) 0.1 10^3/uL (0.0-0.2); ABSOLUTE EOSINOPHILS # (AUTO) 0.1 10^3/uL (0.0-0.6); ABSOLUTE LYMPHOCYTES (AUTO) 1.4 10^3/uL (0.5-4.7); ABSOLUTE MONOCYTES (AUTO) 0.6 10^3/uL (0.1-1.4); ABSOLUTE NEUT (AUTO) 5.7 10^3/uL (1.7-8.2); BASOPHILS % (AUTO) 1.3 % (0-2); EOSINOPHILS % (AUTO) 1.2 % (0-6); HEMATOCRIT 43.5 % (36.0-47.0); HEMOGLOBIN 14.7 g/dL (12.0-15.5); LYMPHOCYTES % (AUTO) 17.8 % (13-45); MEAN CORPUSCULAR HGB CONC 33.7 g/dL (32.0-36.0); MEAN CORPUSCULAR VOLUME 92 fl (80-97); MONOCYTES % (AUTO) 7.5 % (3-13); PLATELET COUNT 289 10^3/uL (150-450); RED BLOOD COUNT 4.73 10^6/uL (3.72-5.28); RED CELL DISTRIBUTION WIDTH 12.6 % (11.5-14.0); SEGMENTED NEUTROPHILS % (AUTO) 72.2 % (42-78); TOTAL CELLS COUNTED % (AUTO) 100 %; WHITE BLOOD COUNT 7.9 10^3/uL (4.0-10.5)
[2019-03-14 12:02] LABS: ALBUMIN 4.8 g/dL (3.5-5.0); ALKALINE PHOSPHATASE 105 U/L (38-126); ANION GAP 11 (5-19); ASPARTATE AMINO TRANSFERASE 41 U/L (14-36); BILIRUBIN,DIRECT 0.1 mg/dL (0.0-0.4); BILIRUBIN,TOTAL 0.9 mg/dL (0.2-1.3); BLOOD UREA NITROGEN 10 mg/dL (7-20); CALCIUM 10.3 mg/dL (8.4-10.2); CARBON DIOXIDE 26 mmol/L (22-30); CHLORIDE 99 mmol/L (98-107); GLUCOSE 131 mg/dL (75-110); POTASSIUM 3.9 mmol/L (3.6-5.0)
[2019-03-14] MEDS ORDERED: NORMAL SALINE 1000 ML 1,000 ML IV ONE (12:08)
--- NOTE | 2019-03-14 13:05 | RADIOLOGY REPORT (SQ) ---
EXAM DESCRIPTION: CT ABD/PELVIS WITH IV ONLY COMPLETED DATE/TIME: 03/14/2019 12:47 pm REASON FOR STUDY: LLQ pain COMPARISON: 10/10/2017 TECHNIQUE: CT scan of the abdomen and pelvis performed using helical scanning technique with dynamic intravenous contrast injection. No oral contrast. Images reviewed with lung, soft tissue, and bone windows. Reconstructed coronal and sagittal MPR images reviewed. Delayed images for evaluation of the urinary system also acquired. All images stored on PACS. All CT scanners at this facility use dose modulation, iterative reconstruction, and/or weight based d osing when appropriate to reduce radiation dose to as low as reasonably achievable (ALARA). [facility]: Dose Right [facility]: CareDose [facility]: Dose Right [facility]: Teradose 4D [facility]: D2C Games CONTRAST TYPE AND DOSE: contrast/concentration: Isovue 350.00 mg/ml; Total Contrast Delivered: 100.0 ml; Total Saline Delivered: 72.0 ml RENAL FUNCTION: BUN 10; creatinine 0.57 RADIATION DOSE: CT Rad equipment meets quality standard of care and radiation dose reduction techniq ues were employed. CTDIvol: 20.4 - 21.1 mGy. DLP: 2252 mGy-cm.. LIMITATIONS: None. FINDINGS: LOWER CHEST: No significant findings. No nodules or infiltrates. LIVER: Hepatic steatosis. Normal size. No masses. No dilated ducts. SPLEEN: Normal size. No focal lesions. PANCREAS: No masses. No significant calcifications. No adjacent inflammation or peripancreatic fluid collections. Pancreatic duct not dilated. GALLBLADDER: No identified stones by CT criteria. No inflammatory changes to suggest cholecystitis. ADRENAL GLANDS: No significant masses or asymmetry. RIGHT KIDNEY AND URETER: No solid masses. No significant calcifications. No hydronephrosis or hyd roureter. LEFT KIDNEY AND URETER: No solid masses. No significant calcifications. No hydronephrosis or hydr oureter. AORTA AND VESSELS: No aneurysm. No dissection. Renal arteries, SMA, celiac without stenosis. RETROPERITONEUM: No retroperitoneal adenopathy, hemorrhage or masses. BOWEL AND PERITONEAL CAVITY: Likely chain sutures in the region of the proximal sigmoid. No masses o r inflammatory changes. No free fluid or peritoneal masses. APPENDIX: Normal. PELVIS: No mass. No free fluid. Normal bladder. ABDOMINAL WALL: No masses. No hernias. BONES: No significant or acute findings. OTHER: No other significant finding. IMPRESSION: Status post herniorrhaphy without evidence of recurrence. No evidence of acute intra- a bdominal infectious/ inflammatory process. TECHNICAL DOCUMENTATION: JOB ID: [id number] Quality ID # [id number]: Final reports with documentation of one or more dose reduction techniques (e.g., Au tomated exposure control, adjustment of the mA and/or kV according to patient size, use of iterative reconstruction technique) 2010 [employer]- All Rights Reserved Reading location - IP/workstation name: [email or web address]
[2019-03-14 14:06] LABS: APPEARANCE,URINE SLIGHTLY-CLOUDY; BILIRUBIN,URINE NEGATIVE (NEGATIVE); COLOR,URINE YELLOW; GLUCOSE, URINE NEGATIVE (NEGATIVE); KETONES,URINE NEGATIVE (NEGATIVE); LEUKOCYTE ESTERASE,URINE NEGATIVE (NEGATIVE); NITRITE,URINE NEGATIVE (NEGATIVE); PROTEIN,URINE NEGATIVE (NEGATIVE); URINE SPECIFIC GRAVITY > 1.060; UROBILINOGEN,URINE NEGATIVE mg/dL (<2.0)
[2019-03-14 14:28] VITALS: BP 138/85
== END 2019-03-14 14:29 | disposition home or self-care (01) ==
LOC: ER 10:01
DX: R10.32 Left lower quadrant pain (principal); R19.7 Diarrhea, unspecified; I10 Essential (primary) hypertension; E11.9 Type 2 diabetes mellitus without complications
CPT/HCPCS: 36415; 83690; 85025; 80053; 81001; 74177; J2405; J7030; 96361; 96374; 99284

== ENCOUNTER → 2020-03-30 | Outpatient (CLI) | payer BC ==
[2020-03-30 09:46] LABS: ABSOLUTE BASOPHILS # (AUTO) 0.1 10^3/uL (0.0-0.2); ABSOLUTE EOSINOPHILS # (AUTO) 0.1 10^3/uL (0.0-0.6); ABSOLUTE LYMPHOCYTES (AUTO) 1.9 10^3/uL (0.5-4.7); ABSOLUTE MONOCYTES (AUTO) 0.6 10^3/uL (0.1-1.4); ABSOLUTE NEUT (AUTO) 6.9 10^3/uL (1.7-8.2); BASOPHILS % (AUTO) 0.7 % (0-2); EOSINOPHILS % (AUTO) 1.5 % (0-6); HEMATOCRIT 45.1 % (36.0-47.0); HEMOGLOBIN 15.7 g/dL (12.0-15.5); MEAN CORPUSCULAR HEMOGLOBIN 32.5 pg (27.0-33.4); MEAN CORPUSCULAR HGB CONC 34.8 g/dL (32.0-36.0); MEAN CORPUSCULAR VOLUME 94 fl (80-97); PLATELET COUNT 279 10^3/uL (150-450); RED BLOOD COUNT 4.83 10^6/uL (3.72-5.28); SEGMENTED NEUTROPHILS % (AUTO) 71.8 % (42-78); TOTAL CELLS COUNTED % (AUTO) 100 %; WHITE BLOOD COUNT 9.6 10^3/uL (4.0-10.5)
[2020-03-30 10:05] LABS: ALBUMIN 4.7 g/dL (3.5-5.0); ALKALINE PHOSPHATASE 118 U/L (38-126); ANION GAP 12 (5-19); ASPARTATE AMINO TRANSFERASE 24 U/L (14-36); BILIRUBIN,DIRECT 0.3 mg/dL (0.0-0.4); BLOOD UREA NITROGEN 11 mg/dL (7-20); CALCIUM 9.9 mg/dL (8.4-10.2); CARBON DIOXIDE 25 mmol/L (22-30); CHLORIDE 101 mmol/L (98-107); GLUCOSE 109 mg/dL (75-110); TOTAL PROTEIN 7.9 g/dL (6.3-8.2); TRIGLYCERIDES 241 mg/dL (<150)
[2020-03-30 10:16] LABS: DIRECT LDL 134 mg/dL (<100)
[2020-03-30 10:18] LABS: VLDL CHOLESTEROL 48.2 mg/dL (10-31)
== END ==
LOC: OD 08:58
PROVIDERS: ATTEND Family Medicine
DX: E78.5 Hyperlipidemia, unspecified (principal); Z13.1 Encounter for screening for diabetes mellitus; R73.9 Hyperglycemia, unspecified; Z79.899 Other long term (current) drug therapy
CPT/HCPCS: 36415; 80053; 80061; 83036; 85025